=== PATIENT | female | born 1945 | race Caucasian/White ===

== ENCOUNTER 2018-04-18 12:52 | Emergency (ER) | payer OTHER ==
[~2018-04-18] VITALS: Ht 167.6 cm; Wt 72.6 kg
[2018-04-18] MEDS ORDERED: GLUCOPHAGE XR500 MG (13:06)
[2018-04-18] MEDS ORDERED: ASPIR 8181 MG (13:06)
[2018-04-18] MEDS ORDERED: VITAMIN D10000 UNIT (13:07)
[2018-04-18] MEDS ORDERED: LANTUS SOL100 UNIT/1 (13:07)
[2018-04-18] MEDS ORDERED: AVAPRO150 MG (13:08)
[2018-04-18] MEDS ORDERED: LASIX20 MG (13:20)
== END 2018-04-18 18:53 | disposition home or self-care (01) ==
LOC: ER 12:52
DX: R06.02 Shortness of breath (principal); J22 Unspecified acute lower respiratory infection

== ENCOUNTER 2020-10-07 08:37 | Outpatient (CLI) | payer OTHER ==
[~2020-10-07 08:37] MED LIST: ASPIR 8181 MG; AVAPRO150 MG; GLUCOPHAGE XR500 MG; LANTUS SOL100 UNIT/1; LASIX20 MG; VITAMIN D10000 UNIT
== END 2020-10-07 12:00 | disposition home or self-care (01) ==
LOC: PPH VACUNA 08:37
PROVIDERS: ATTEND Emergency Medicine Pediatric Emergency Medicine
DX: Z23 Encounter for immunization (principal)